=== PATIENT | male | born 1985 | race Caucasian/White ===

== ENCOUNTER 2017-12-11 03:19 | Emergency (ER) | payer OTHER ==
[2017-12-11] MEDS: HYDROMORPHONE HCL 0.5 MG/ 0.5 ML SYRINGE (J1170 PER 1) IM (05:20)
== END 2017-12-11 05:59 | disposition home or self-care (01) ==
LOC: M ED 03:19
DX: G89.29 Other chronic pain (principal); M54.5 Low back pain; Z87.891 Personal history of nicotine dependence
CPT/HCPCS: J1170

== ENCOUNTER → 2018-04-11 | Outpatient (REF) ==
[~2018-04-11] MED LIST: TRAM50TA2 PO
--- NOTE | 2018-04-12 02:48 | REP ---
Clinical: Right shoulder pain . Technique: Internal rotation, external rotation, and Y view. Findings: No acute fracture or dislocation. The acromioclavicular and glenohumeral joints are intact. No periarticular calcifications or degenerative changes are appreciated. Sub acromial space is normal. Surrounding soft tissues are unremarkable. Impression: Normal right shoulder radiographs. Electronically Signed by Ned Owens MD 04/12/2018 02:39 A
== END ==
LOC: M RAD 09:35
PROVIDERS: ATTEND Family Medicine
DX: M25.511 Pain in right shoulder (principal)

== ENCOUNTER → 2020-07-10 | Outpatient (REF) | payer OTHER | LOC: M SMT 13:00 | PROVIDERS: ATTEND Urology | DX: Z30.2 Encounter for sterilization (principal) ==

== ENCOUNTER → 2020-09-06 | Outpatient (REF) | payer OTHER ==
[2020-09-06 13:35] LABS: SEMEN APPEARANCE OPAQUE (OPAQUE); SEMEN VISCOSITY LIQUID (LIQUID); WBC CONCENTRATION >1 M/ml (<=1 M/ml)
== END ==
LOC: M SMT 13:12
PROVIDERS: ATTEND Urology
DX: Z30.8 Encounter for other contraceptive management (principal)

== ENCOUNTER → 2021-08-15 | Outpatient (CLI) | payer OTHER ==
[~2021-08-15] MED LIST changes: +OMEP-173
== END ==
LOC: M LABSMTC 09:57
PROVIDERS: ATTEND Anesthesiology
DX: Z01.812 Encounter for preprocedural laboratory examination (principal); Z20.822 Contact with and (suspected) exposure to COVID-19

== ENCOUNTER → 2021-08-18 | Outpatient (CLI) | payer OTHER | LOC: M PLAIMG 12:12 | PROVIDERS: ATTEND Orthopaedic Surgery | DX: M25.362 Other instability, left knee (principal) ==

== ENCOUNTER 2021-08-20 08:12 | Day surgery (SDC) | payer OTHER ==
[~2021-08-20] VITALS: Ht 170.2 cm; Wt 95.0 kg
[~2021-08-20 08:12] MED LIST changes: +NS 1,000 ML IV ONE
[2021-08-20] MEDS ORDERED: fentaNYL 100 MCG/2 ML INJECTION As Ordered ONE (09:59)
[2021-08-20] MEDS ORDERED: propofoL 500 MG/50 ML VIAL As Ordered ONE (09:59)
[2021-08-20] MEDS ORDERED: LIDOCAINE 2% 100MG/5ML SDV (FOR ANES.) As Ordered ONE (09:59)
[2021-08-20 10:25] VITALS: BP 123/74
== END 2021-08-20 10:36 | disposition home or self-care (01) ==
LOC: M OPP 08:12
PROVIDERS: ATTEND Surgery
DX: K29.70 Gastritis, unspecified, without bleeding (principal); K22.89 Other specified disease of esophagus; Z79.899 Other long term (current) drug therapy
CPT/HCPCS: 43239; 88305; J3010

== ENCOUNTER → 2021-08-26 | Outpatient (CLI) | payer OTHER ==
[~2021-08-26] MED LIST changes: -NS 1,000 ML IV ONE
== END ==
LOC: M PLAIMG 06:42
PROVIDERS: ATTEND Family Medicine
DX: M54.2 Cervicalgia (principal); M25.78 Osteophyte, vertebrae; M48.02 Spinal stenosis, cervical region; M51.26 Other intervertebral disc displacement, lumbar region

== ENCOUNTER → 2022-12-29 | Outpatient (CLI) | payer OTHER | LOC: M SLEEP 20:00 | PROVIDERS: ATTEND Nurse Practitioner Family | DX: G47.33 Obstructive sleep apnea (adult) (pediatric) (principal) ==

== ENCOUNTER → 2023-09-11 | Outpatient (CLI) | payer OTHER | LOC: M SLEEP 20:00 | PROVIDERS: ATTEND Nurse Practitioner Family | DX: G47.33 Obstructive sleep apnea (adult) (pediatric) (principal) ==

== ENCOUNTER → 2024-01-06 | Outpatient (CLI) | payer OTHER | LOC: M SLEEP 20:00 | PROVIDERS: ATTEND Nurse Practitioner Family | DX: G47.33 Obstructive sleep apnea (adult) (pediatric) (principal) ==

== ENCOUNTER → 2025-01-30 | Outpatient (CLI) | payer OTHER | LOC: M PLAIMG 14:56 | PROVIDERS: ATTEND Registered Nurse | DX: M54.2 Cervicalgia (principal) ==